=== PATIENT | female | born 2005 | race African-American/Black ===

== ENCOUNTER 2025-03-08 16:36 | Emergency (ER) | payer OTHER ==
[2025-03-08 17:19] VITALS: BP 106/62; PULSE 81; RESP 18; TEMP 98.8; BMI 26.6
[2025-03-08] MEDS: IBUPROFEN 400 MG TABLET (FP) PO ONE (18:50)
[2025-03-08] MEDS: ALBUTEROL SO4 0.083% IH SOL 2.5 MG/3 ML VIAL.NEB. NEB PRN (18:50)
[2025-03-08] MEDS ORDERED: IBUPROFEN 400 MG TABLET (FP) PO ONE (18:50)
[2025-03-08] MEDS: predniSONE 20 MG TABLET (UD) PO ONE (18:50)
[2025-03-08] MEDS ORDERED: predniSONE 20 MG TABLET (UD) ONE (18:50)
[2025-03-08] MEDS: METOCLOPRAMIDE HCL INJECTION 10 MG/2 ML VIAL IVPB ONE (19:17)
== END 2025-03-08 20:26 | disposition home or self-care (01) ==
LOC: JER 16:36
DX: R51.9 Headache, unspecified (principal); R07.89 Other chest pain; R06.2 Wheezing
CPT/HCPCS: 71046-TC-FY; 84703; 99284-25